=== PATIENT | female | born 1970 | race Caucasian/White ===

== ENCOUNTER → 2016-12-14 | Outpatient (CLI) | payer OTHER ==
[~2016-12-14] MED LIST: ADDERALL XR20 MG PO; ADDERALL10 MG PO; ALEVE 220MG220 MG PO; BENADRYL E2.5 MG/1 M PO; CEPHALEXIN500 M1 PO; DEPAKOTE ER 50500 MG PO; HCTZ 25MG TAB25 MG PO; K-DUR 10 MEQ T10 MEQ; KLONOPIN 0.5MG0.5 MG PO; KLONOPIN0.5 MG PO; KLONOPIN2 MG PO; LAMICTAL150 MG PO; LOPRESSOR 225 MG/TAB PO; MACROBID 1100 MG/CAP PO; MICRO-K 1010 MEQ PO; MULTI VITAMINS1 TAB PO; NATURAL POTASS595 MG PO; NORCO 325 MG-51 TAB PO; NORCO 325 MG-7.1 TAB PO; OXY IR5 MG PO; OXYCODONE5 MG PO; PERCOCET 325 MG1 TA2 PO; PERCOCET 5/321 UDTAB PO; PHENERGAN 25 TA25 MG PO; PHENERGAN25 MG RC; PROAIR HFA0.09 MG/AC IH; PROZAC 20MG20 MG PO; PYRIDIUM200 M1 PO; RYTHMOL 15150 MG/TAB PO; RYTHMOL150 MG PO; SINGULAIR; TENORMIN 2525 MG/TAB PO; TOPROL XL50 MG PO; ULTRAM 50MG TAB50 MG PO; VALIUM 2MG T2 MG/TAB PO; VASOTEC 2.2.5 MG/TAB PO; ZOFRAN ODT4 MG PO; ZYRTEC 10MG10 MG PO; ZYRTEC10 MG PO; ZYRTEC5 MG PO; [UNRECOGNIZED DRUG - OTHER]; water pill
== END ==
LOC: MC.RAD 13:55
DX: N64.4 Mastodynia (principal); R92.8 Other abnormal and inconclusive findings on diagnostic imaging of breast

== ENCOUNTER → 2016-12-20 | Outpatient (CLI) | payer OTHER | LOC: MC.RAD 08:00 | DX: N63 Unspecified lump in breast (principal) ==

== ENCOUNTER → 2017-01-06 | Outpatient (CLI) | payer OTHER | LOC: BHSO 14:21 | DX: F31.0 Bipolar disorder, current episode hypomanic (principal) ==

== ENCOUNTER 2017-01-30 08:04 | Emergency (ER) | payer OTHER ==
[~2017-01-30] VITALS: Ht 154.9 cm; Wt 61.4 kg
[~2017-01-30 08:04] MED LIST changes: -ADDERALL10 MG PO; -BENADRYL E2.5 MG/1 M PO; -DEPAKOTE ER 50500 MG PO; -NATURAL POTASS595 MG PO; -TENORMIN 2525 MG/TAB PO; -VALIUM 2MG T2 MG/TAB PO; -ZYRTEC 10MG10 MG PO
[2017-01-30 08:06] VITALS: TEMP 97.9
[2017-01-30] MEDS ORDERED: PERCOCET 325 MG1 TA2 PO (09:17)
[2017-01-30] MEDS ORDERED: DEPAKOTE ER 50500 MG PO (09:19)
[2017-01-30] MEDS ORDERED: ZYRTEC 10MG10 MG PO (09:20)
[2017-01-30] MEDS ORDERED: NATURAL POTASS595 MG PO (09:21)
[2017-01-30] MEDS ORDERED: BENADRYL E2.5 MG/1 M PO (09:22)
[2017-01-30] MEDS ORDERED: ADDERALL10 MG PO (09:23)
[2017-01-30 09:28] LABS: BASO % 0.3 % (0.0-2.0); EOS # 0.1 (0.0-0.7); EOS % 0.5 % (0-4.0); GRAN # 6.4 (1.4-6.5); GRAN % 53.8 % (42.2-75.2); HEMATOCRIT 40.7 % (37.0-47.0); HEMOGLOBIN 13.9 g/dl (12.5-16.0); LYMPH # 4.6 (1.2-3.4); LYMPH % 38.8 % (20.0-51.0); MEAN CELL VOLUME 94 fl (80.0-100.0); MEAN CORPUSCULAR HEMOGLOBIN 32 pg (27.0-31.0); MEAN CORPUSCULAR HGB CONC 34 g/dl (33.0-37.0); MEAN PLATELET VOLUME 11.7 fl (7.4-10.4); MONO # 0.7 (0.1-0.6); PLATELET COUNT 189 K/mm3 (130-400); RED BLOOD COUNT 4.32 M/mm3 (4.10-5.30); WHITE BLOOD COUNT 11.9 K/mm3 (4.8-10.8)
[2017-01-30 09:38] LABS: ADJUSTED CALCIUM 9.1 mg/dL (8.4-10.2); ALANINE AMINOTRANSFERASE 23 U/L (9-52); ALBUMIN 4.1 gm/dL (3.5-5.0); ALKALINE PHOSPHATASE 52 U/L (50-136); ANION GAP 15 mmol/L (7-16); BILIRUBIN,TOTAL 0.6 mg/dL (0.0-1.0); BLOOD UREA NITROGEN 17 mg/dL (7-17); CALCIUM 9.2 mg/dL (8.4-10.2); CARBON DIOXIDE 24 mmol/L (22-30); CHLORIDE 101 mmol/L (98-107); CREATININE, serum 0.82 mg/dL (0.52-1.25); GLUCOSE 84 mg/dL (74-106); POTASSIUM 3.3 mmol/L (3.4-5.0); SODIUM 140 mmol/L (137-145); TOTAL PROTEIN 6.9 gm/dL (6.4-8.2)
[2017-01-30 09:49] LABS: B-TYPE NATRIURETIC PEPTIDE 70 pg/mL (0-125)
[2017-01-30 09:57] LABS: TROPONIN-I < 0.012 ng/mL (0.000-0.034)
[2017-01-30] MEDS ORDERED: VALIUM 2MG T2 MG/TAB PO (10:59)
[2017-01-30] MEDS ORDERED: TENORMIN 2525 MG/TAB PO ×2 (11:25→11:32)
[2017-01-30 11:44] VITALS: BP 153/103; PULSE 76
== END 2017-01-30 11:45 | disposition home or self-care (01) ==
LOC: COL.ER 08:04
PROVIDERS: Emergency Medicine
DX: M54.12 Radiculopathy, cervical region (principal); G43.909 Migraine, unspecified, not intractable, without status migrainosus; J45.909 Unspecified asthma, uncomplicated; I48.91 Unspecified atrial fibrillation; F17.210 Nicotine dependence, cigarettes, uncomplicated; Z90.49 Acquired absence of other specified parts of digestive tract; Z98.51 Tubal ligation status
CPT/HCPCS: J1170; J3360; J7030

== ENCOUNTER → 2017-02-08 | Outpatient (CLI) | payer OTHER ==
[~2017-02-08] MED LIST changes: +ADDERALL10 MG PO; +BENADRYL E2.5 MG/1 M PO; +DEPAKOTE ER 50500 MG PO; +NATURAL POTASS595 MG PO; +TENORMIN 2525 MG/TAB PO; +VALIUM 2MG T2 MG/TAB PO; +ZYRTEC 10MG10 MG PO
== END ==
LOC: COL.RAD 02-06 12:30
DX: M25.78 Osteophyte, vertebrae (principal)

== ENCOUNTER → 2017-02-14 | Outpatient (CLI) | payer OTHER | LOC: MHCPAIN 10:35 | DX: G89.29 Other chronic pain (principal); M54.12 Radiculopathy, cervical region; M47.812 Spondylosis without myelopathy or radiculopathy, cervical region | CPT/HCPCS: G0463 ==

== ENCOUNTER → 2017-02-16 | Outpatient (CLI) | payer OTHER | LOC: MHCPAIN 09:41 | DX: M50.323 Other cervical disc degeneration at C6-C7 level (principal) | CPT/HCPCS: J1100; Q9967 ==

== ENCOUNTER → 2017-03-20 | Outpatient (CLI) | payer OTHER | LOC: MHCPAIN 12:45 | DX: G89.29 Other chronic pain (principal); M50.90 Cervical disc disorder, unspecified, unspecified cervical region; M54.12 Radiculopathy, cervical region | CPT/HCPCS: G0463 ==

== ENCOUNTER 2017-03-29 10:45 | Outpatient (RCR) | payer OTHER | END 2017-06-01 15:09 | LOC: WSPT 10:45 | DX: M50.122 Cervical disc disorder at C5-C6 level with radiculopathy (principal); M50.123 Cervical disc disorder at C6-C7 level with radiculopathy ==

== ENCOUNTER → 2017-05-12 | Outpatient (CLI) | payer OTHER | LOC: BHSO 13:59 | DX: F31.73 Bipolar disorder, in partial remission, most recent episode manic (principal) ==

== ENCOUNTER → 2019-10-10 | Outpatient (CLI) | payer OTHER ==
[~2019-10-10] MED LIST changes: +CIPRO 500MG TA500 MG PO; +DYAZIDE 25 MG-31 CAP PO; +LIORESAL 1010 MG/TAB PO; +MILK THISTLE150 MG PO; +POTASSIUM GLUC595 M1 PO; +PRINIVIL20 MG PO; +PROBIOTIC FORMU1 CAP PO; +VERELAN PM100 MG PO; +VERELAN PM200 MG PO; +VITAMIN C500 MG PO
== END ==
LOC: MC.RAD 10:52
DX: N63.20 Unspecified lump in the left breast, unspecified quadrant (principal)
CPT/HCPCS: G0279